=== PATIENT | male | born 1980 | race Caucasian/White ===

== ENCOUNTER 2021-01-31 12:46 | Emergency (ER) | payer OTHER ==
[~2021-01-31] VITALS: Ht 177.8 cm; Wt 104.8 kg
[~2021-01-31 12:46] MED LIST: AZITHROMYCIN 2250 MG PO; IBUPROFEN 800800 MG PO; LIPOFEN50 MG; PERCOCET 5-3251 EACH PO; PRILOSEC20 MG PO
[2021-01-31 13:38] VITALS: BP 154/97
== END 2021-01-31 13:38 | disposition home or self-care (01) ==
LOC: ER 12:46
DX: S50.812A Abrasion of left forearm, initial encounter (principal); M54.5 Low back pain; M25.512 Pain in left shoulder; E78.00 Pure hypercholesterolemia, unspecified; F12.90 Cannabis use, unspecified, uncomplicated; Z87.891 Personal history of nicotine dependence; V43.52XA Car driver injured in collision with other type car in traffic accident, initial encounter; Y93.19 Activity, other involving water and watercraft; Y92.89 Other specified places as the place of occurrence of the external cause; Y99.8 Other external cause status